=== PATIENT | male | born 1965 | race Two or more races ===

== ENCOUNTER 2018-03-11 07:23 | Day surgery (SDC) | payer OTHER ==
[~2018-03-11] VITALS: Ht 167.6 cm; Wt 72.6 kg
[2018-03-11 08:07] VITALS: BP 109/68
[2018-03-11 11:40] VITALS: BP 97/62
== END 2018-03-11 10:55 | disposition home or self-care (01) ==
LOC: GI 07:23 → OR 09:30 → GI 10:55
PROVIDERS: Internal Medicine Gastroenterology
PROC: 0DJD8ZZ Inspection of Lower Intestinal Tract, Via Natural or Artificial Opening Endoscopic (ICD-10-PCS; principal; 2018-03-11 09:30)
DX: Z12.11 Encounter for screening for malignant neoplasm of colon (principal)
CPT/HCPCS: 45378; J1610; J2250; J2310; J3010; J3490